=== PATIENT | female | born 1995 | race African-American/Black ===

== ENCOUNTER 2017-08-27 04:05 | Emergency (ER) | payer MEDICAID ==
[~2017-08-27] VITALS: Ht 172.7 cm; Wt 59.0 kg
[2017-08-27] MEDS ORDERED: ONDANSETRON HCL 4MG/2ML VIAL IV STA (06:11)
[2017-08-27] MEDS ORDERED: MORPHINE SULFATE 4 MG/ML CPJ (NOT FOR IM USE) IV STA (06:11)
[2017-08-27] MEDS ORDERED: SODIUM CHLORIDE 0.9% 1,000 ML IV ONE (06:11)
[2017-08-27 06:31] LABS: BASOPHILS % 0.8 % (0.0-2.0); EOSINOPHILS % 0.2 % (0.0-5.0); HEMATOCRIT. 29.7 % (36.0-48.0); HEMOGLOBIN. 9.3 g/dL (12.0-16.0); LYMPHOCYTES % 7.4 % (20.0-50.0); MEAN CORPUSCULAR HEMOGLOBIN 21.3 pg (28.0-32.0); MEAN CORPUSCULAR VOLUME 68.4 fL (81.0-99.0); MEAN PLATELET VOLUME 8.4 fl (7.4-10.4); MONOCYTES % 4.7 % (2.0-8.0); NEUTROPHILS % 86.9 % (40.0-76.0); PLATELET 331 x1000/uL (130-400); RED BLOOD CELL COUNT 4.34 mill/uL (4.2-5.4); RED CELL DISTRIBUTION WIDTH 20.1 % (11.6-14.6)
[2017-08-27 06:36] LABS: INR 1.2; PROTHROMBIN TIME 12.6 sec (9.4-11.6)
[2017-08-27 06:36] LABS: CLARITY URINE CLEAR (CLEAR); COLOR URINE YELLOW (YELLOW); KETONES URINE NEGATIVE (NEGATIVE); LEUKOCYTE ESTERASE URINE 1+ (NEGATIVE); NITRITE URINE NEGATIVE (NEGATIVE); OCCULT BLOOD URINE NEGATIVE (NEGATIVE); PROTEIN URINE NEGATIVE (NEGATIVE); SPECIFIC GRAVITY URINE 1.021 (1.005-1.030)
[2017-08-27 06:43] LABS: CHLORIDE 103 mEq/L (98-107)
[2017-08-27 06:45] LABS: HCG SCREEN NEGATIVE
[2017-08-27 07:17] LABS: PLATELET ESTIMATE NORMAL
[2017-08-27] MEDS ORDERED: LIDOCAINE HCL/PF 1% 10 MG/ML 5ML VIAL IJ NR (08:30)
[2017-08-27] MEDS ORDERED: IOHEXOL-300 100 ML BOTTLE ONE (08:48)
[2017-08-27] MEDS: CEFTRIAXONE SODIUM 250 MG/VIAL IM NR ×2 (09:15→11:02)
[2017-08-27] MEDS: AZITHROMYCIN 500 MG TABLET PO NR ×2 (09:17→11:02)
[2017-08-27] MEDS ORDERED: KETOROLAC 30MG/ML VIAL IV ONE (11:00)
[2017-08-27 11:08] VITALS: BP 104/46
== END 2017-08-27 11:31 | disposition home or self-care (01) ==
LOC: ER 04:40
DX: R10.31 Right lower quadrant pain (principal); R11.0 Nausea; K59.00 Constipation, unspecified; F12.10 Cannabis abuse, uncomplicated; Z88.6 Allergy status to analgesic agent
CPT/HCPCS: 36415; 74177; 76830; 76856; 80053; 81001; 83690; 84703; 85025; 85610; 96361; 96372; 96374; 96375; 99285; J0696; J1885; J2270; J2405; J3490; J7030; Q9967; Z7610